=== PATIENT | female | born 1970 | race Caucasian/White ===

== ENCOUNTER 2017-12-19 22:32 | Inpatient (IN) | payer OTHER ==
[~2017-12-19] VITALS: Ht 160 cm; Wt 79.6 kg
[2017-12-19] MEDS ORDERED: ondansetron/PF 4mg/2ml inj IV ONE (22:55)
[2017-12-19] MEDS ORDERED: normal saline 1000ML IV soln IVB ONE (22:55)
[2017-12-19] MEDS ORDERED: acetaminophen 325mg tablet PO ONE (22:55)
[2017-12-19 23:02] LABS: CLARITY,URINE CLEAR (Clear); COLOR,URINE YELLOW (Yellow); GLUCOSE, URINE NEGATIVE (Neg); KETONES,URINE TRACE mg/dl (Neg); LEUKOCYTE ESTERASE ,URINE NEGATIVE (Neg); NITRITES, URINE NEGATIVE (Neg); OCCULT BLOOD,URINE TRACE-LYSED (Neg); PROTEIN,URINE TRACE mg/dl (Neg); UROBILINOGEN,URINE 0.2 E.U/dL (0.2-1.0)
[2017-12-19 23:03] LABS: UA COLLECTION TYPE CLN CATCH MIDSTREAM
[2017-12-19 23:09] LABS: BACTERIA,URINE FEW /HPF (Neg); MUCUS STRANDS MANY /LPF (Neg); SQUAMOUS EPITHELIAL CELL,UR FEW /LPF (FEW); WBC,URINE NONE SEEN /HPF (0-4)
[2017-12-19 23:32] LABS: HCG SERUM QL NEGATIVE
[2017-12-19] MEDS ORDERED: ketorolac tromethamine 15mg/ml inj. IV ONE (23:45)
[2017-12-19 23:49] LABS: BASOPHILS % (AUTO) 0 % (0-1); EOSINOPHILS # (AUTO) 0.3 X10'3 (0-0.9); EOSINOPHILS % (AUTO) 1.7 % (0-6); HEMATOCRIT 37.9 % (35.0-45.0); HEMOGLOBIN 13.5 g/dl (12.0-16.0); LYMPHOCYTES # (AUTO) 0.8 X10'3 (1.1-4.8); LYMPHOCYTES % (AUTO) 4.1 % (21-51); MEAN CORPUSCULAR HEMOGLOBIN 33.1 PG (27.0-31.0); MEAN CORPUSCULAR HGB CONC 35.6 % (33.0-36.5); MEAN CORPUSCULAR VOLUME 92.8 FL (78-98); MEAN PLATELET VOLUME 7.3 FL (7.4-10.4); MONOCYTES # (AUTO) 0.7 X10'3 (0-0.9); MONOCYTES % (AUTO) 3.5 % (2-12); NEUTROPHILS # (AUTO) 17.3 X10'3 (1.8-7.7); NEUTROPHILS % (AUTO) 90.7 % (42-75); PLATELET COUNT 219 X10'3 (140-440); RED BLOOD COUNT 4.08 X10'6 (4.20-5.60); RED CELL DISTRIBUTION WIDTH 13.1 % (11.5-14.5)
[2017-12-19] MEDS ORDERED: levoFLOXACIN-Levaquin 500mg/D5 100 ML IV ONE (23:50)
[2017-12-19] MEDS ORDERED: metroNIDAZOLE-Flagyl 500mg/NS 100 ML IV ONE (23:50)
[2017-12-20] VITALS (22 sets, daily range): BP systolic 92–124; BP diastolic 60–75
[2017-12-20 00:05] LABS: ALANINE AMINOTRANSFERASE 17 U/L (12-78); ALBUMIN 3.4 G/DL (3.4-5.0); ALBUMIN/GLOBULIN RATIO 1.1 (1.1-1.5); ALKALINE PHOSPHATASE 80 IU/L (46-116); ANION GAP 10 (8-16); ASPARTATE AMINO TRANSFERASE 13 U/L (10-37); BILIRUBIN,TOTAL 0.5 MG/DL (0.1-1.0); BLOOD UREA NITROGEN 11 MG/DL (7-18); BUN/CREATININE RATIO 13.8 (6.6-38.0); CALCIUM 8.4 MG/DL (8.5-10.1); CHLORIDE 105 MMOL/L (99-107); GLUCOSE 98 MG/DL (70-104); LIPASE 62 U/L (73-393); MAGNESIUM 1.8 MG/DL (1.5-2.4); POTASSIUM 3.6 MMOL/L (3.5-5.1); SODIUM 139 MMOL/L (135-145); TOTAL CARBON DIOXIDE 24.2 MMOL/L (24-32); TOTAL PROTEIN 6.5 G/DL (6.4-8.2); eGFR 77 ML/MIN
[2017-12-20] MEDS: HYDROmorphone 1 mg/ml syringe IV PRN ×2 (00:31→01:08)
[2017-12-20] MEDS ORDERED: naloxone 0.4 mg/ml inj IV PRN (01:00)
[2017-12-20] MEDS ORDERED: CADD PCA waste documentation MC PRN (01:00)
[2017-12-20] MEDS: HYDROmorphone/NS 1 mg/ml CADD 50 ML IV SCH ×12 (02:26→22:58)
[2017-12-20] MEDS: normal saline 1000ml 1,000 ML IV SCH ×2 (02:27→07:37)
[2017-12-20] MEDS: pantoprazole 40 MG vial IV SCH (08:03)
[2017-12-20] MEDS: lactobacillus rhamnosus 10,000 MMU CELLS/CAPSULE PO SCH ×2 (08:03→17:59)
[2017-12-20] MEDS: metroNIDAZOLE-Flagyl 500mg/NS 100 ML IV SCH ×3 (08:04→23:08)
[2017-12-20] MEDS ORDERED: BUPIVAcaine/PF 2.5 mg/ml (0.25%) 30ml vial ONE (09:49)
[2017-12-20] MEDS ORDERED: sevoflurane 250ml liquid IH ONE (10:04)
[2017-12-20] MEDS ORDERED: meperidine/PF 50mg/ml syringe IV PRN ×3 (10:05)
[2017-12-20] MEDS ORDERED: proCHLORperazine 10 MG/2 ml inj IV PRN (10:05)
[2017-12-20] MEDS ORDERED: ringers solution, lacted 1,000 ML IV SCH (10:05)
[2017-12-20] MEDS ORDERED: morphine 2 MG/ML inj. syringe IV PRN ×2 (10:05)
[2017-12-20] MEDS ORDERED: ondansetron/PF 4mg/2ml inj IV PRN (10:05)
[2017-12-20] MEDS ORDERED: fentaNYL/PF 50MCG/1 ML 2ML syringe ONE ×2 (10:07→10:31)
[2017-12-20] MEDS ORDERED: midazolam 2 mg/2 ml injection ONE (10:07)
[2017-12-20] MEDS ORDERED: propofol inj 20 ML IV ONE (10:07)
[2017-12-20] MEDS ORDERED: rocuronium 10mg/ml inj IV ONE (10:07)
[2017-12-20] MEDS ORDERED: neostigmine methylsulfate 1 MG/ML 10ml vial ONE (10:42)
[2017-12-20] MEDS ORDERED: glycopyrrolate 0.2mg/ml inj ONE (10:42)
[2017-12-20] MEDS ORDERED: NO HOME MEDS (13:24)
[2017-12-20] MEDS: acetaminophen 325mg tablet PO PRN ×2 (14:36→19:08)
[2017-12-20] MEDS: Potassium Cl inj 20 MEQ in normal saline 1000ml 1,000 ML IV SCH (19:09)
[2017-12-20] MEDS: levoFLOXACIN-Levaquin 500mg/D5 100 ML IV SCH (21:16)
[2017-12-21] VITALS: BP 104/74
[2017-12-21] MEDS: HYDROmorphone/NS 1 mg/ml CADD 50 ML IV SCH ×11 (01:00→21:00)
[2017-12-21] MEDS: acetaminophen 325mg tablet PO PRN ×4 (01:20→21:04)
[2017-12-21 04:00] VITALS: BP 106/63
[2017-12-21 05:17] LABS: BASOPHILS % (AUTO) 0.1 % (0-1); EOSINOPHILS # (AUTO) 0.2 X10'3 (0-0.9); EOSINOPHILS % (AUTO) 1.8 % (0-6); HEMATOCRIT 31.8 % (35.0-45.0); HEMOGLOBIN 11.4 g/dl (12.0-16.0); LYMPHOCYTES # (AUTO) 0.8 X10'3 (1.1-4.8); LYMPHOCYTES % (AUTO) 5.9 % (21-51); MEAN CORPUSCULAR HGB CONC 35.8 % (33.0-36.5); MEAN CORPUSCULAR VOLUME 92.3 FL (78-98); MEAN PLATELET VOLUME 7.4 FL (7.4-10.4); MONOCYTES # (AUTO) 0.8 X10'3 (0-0.9); MONOCYTES % (AUTO) 5.5 % (2-12); NEUTROPHILS # (AUTO) 11.9 X10'3 (1.8-7.7); NEUTROPHILS % (AUTO) 86.7 % (42-75); PLATELET COUNT 186 X10'3 (140-440); RED BLOOD COUNT 3.45 X10'6 (4.20-5.60); RED CELL DISTRIBUTION WIDTH 12.7 % (11.5-14.5); WHITE BLOOD COUNT 13.7 X10'3 (4.5-11.0)
[2017-12-21 05:44] LABS: ALANINE AMINOTRANSFERASE 12 U/L (12-78); ALBUMIN 2.5 G/DL (3.4-5.0); ALBUMIN/GLOBULIN RATIO 0.9 (1.1-1.5); ALKALINE PHOSPHATASE 73 IU/L (46-116); ANION GAP 7 (8-16); ASPARTATE AMINO TRANSFERASE 9 U/L (10-37); BILIRUBIN,TOTAL 0.4 MG/DL (0.1-1.0); BLOOD UREA NITROGEN 6 MG/DL (7-18); BUN/CREATININE RATIO 7.6 (6.6-38.0); CHLORIDE 108 MMOL/L (99-107); CREATININE 0.79 MG/DL (0.40-0.90); GLUCOSE 105 MG/DL (70-104); POTASSIUM 4.1 MMOL/L (3.5-5.1); SODIUM 140 MMOL/L (135-145); TOTAL CARBON DIOXIDE 24.8 MMOL/L (24-32); TOTAL PROTEIN 5.4 G/DL (6.4-8.2); eGFR 78 ML/MIN
[2017-12-21] MEDS: Potassium Cl inj 20 MEQ in normal saline 1000ml 1,000 ML IV SCH ×3 (06:47→17:17)
[2017-12-21 07:00] VITALS: BP 98/69
[2017-12-21] MEDS: pantoprazole 40 MG vial IV SCH (07:55)
[2017-12-21] MEDS: metroNIDAZOLE-Flagyl 500mg/NS 100 ML IV SCH ×3 (07:55→23:26)
[2017-12-21] MEDS: lactobacillus rhamnosus 10,000 MMU CELLS/CAPSULE PO SCH ×2 (07:56→17:16)
[2017-12-21] MEDS: ondansetron/PF 4mg/2ml inj IV PRN ×2 (15:51→21:51)
[2017-12-21] MEDS ORDERED: proCHLORperazine 10 MG/2 ml inj IV PRN (19:25)
[2017-12-21 20:00] VITALS: BP 109/68
[2017-12-21] MEDS: levoFLOXACIN-Levaquin 500mg/D5 100 ML IV SCH (20:59)
[2017-12-21] MEDS ORDERED: HYDROmorphone inj. 0.5 MG/0.5 ML DISP.SYRIN IV PRN ×2 (21:15)
[2017-12-21] MEDS: normal saline 1000ml 1,000 ML IV SCH (21:34)
[2017-12-22] VITALS: BP 142/92
[2017-12-22 05:44] LABS: BASOPHILS % (AUTO) 0 % (0-1); EOSINOPHILS # (AUTO) 0.2 X10'3 (0-0.9); EOSINOPHILS % (AUTO) 1.9 % (0-6); HEMATOCRIT 33.8 % (35.0-45.0); HEMOGLOBIN 11.9 g/dl (12.0-16.0); LYMPHOCYTES # (AUTO) 0.7 X10'3 (1.1-4.8); LYMPHOCYTES % (AUTO) 6.9 % (21-51); MEAN CORPUSCULAR HEMOGLOBIN 32.7 PG (27.0-31.0); MEAN CORPUSCULAR HGB CONC 35.1 % (33.0-36.5); MEAN PLATELET VOLUME 7.8 FL (7.4-10.4); MONOCYTES # (AUTO) 0.5 X10'3 (0-0.9); MONOCYTES % (AUTO) 4.9 % (2-12); NEUTROPHILS # (AUTO) 9.1 X10'3 (1.8-7.7); NEUTROPHILS % (AUTO) 86.3 % (42-75); PLATELET COUNT 204 X10'3 (140-440); RED BLOOD COUNT 3.63 X10'6 (4.20-5.60); RED CELL DISTRIBUTION WIDTH 12.6 % (11.5-14.5); WHITE BLOOD COUNT 10.5 X10'3 (4.5-11.0)
[2017-12-22 06:08] LABS: ALANINE AMINOTRANSFERASE 19 U/L (12-78); ALBUMIN 2.5 G/DL (3.4-5.0); ALBUMIN/GLOBULIN RATIO 0.8 (1.1-1.5); ALKALINE PHOSPHATASE 80 IU/L (46-116); ANION GAP 10 (8-16); ASPARTATE AMINO TRANSFERASE 13 U/L (10-37); BILIRUBIN,TOTAL 0.4 MG/DL (0.1-1.0); BLOOD UREA NITROGEN 7 MG/DL (7-18); BUN/CREATININE RATIO 9.9 (6.6-38.0); CALCIUM 7.9 MG/DL (8.5-10.1); CHLORIDE 107 MMOL/L (99-107); CREATININE 0.71 MG/DL (0.40-0.90); GLUCOSE 86 MG/DL (70-104); POTASSIUM 4.2 MMOL/L (3.5-5.1); SODIUM 140 MMOL/L (135-145); TOTAL CARBON DIOXIDE 23.5 MMOL/L (24-32); TOTAL PROTEIN 5.5 G/DL (6.4-8.2); eGFR 89 ML/MIN
[2017-12-22 07:00] VITALS: BP 121/73
[2017-12-22] MEDS: normal saline 1000ml 1,000 ML IV SCH (07:11)
[2017-12-22] MEDS: metroNIDAZOLE-Flagyl 500mg/NS 100 ML IV SCH (07:16)
[2017-12-22] MEDS: pantoprazole 40 MG vial IV SCH (07:16)
[2017-12-22] MEDS: ondansetron/PF 4mg/2ml inj IV PRN (07:16)
[2017-12-22] MEDS: lactobacillus rhamnosus 10,000 MMU CELLS/CAPSULE PO SCH (07:16)
[2017-12-22 11:00] VITALS: BP 127/80
[2017-12-22] MEDS ORDERED: METR500T PO (11:11)
[2017-12-22] MEDS ORDERED: ONDA4TAB9 PO (11:11)
[2017-12-22] MEDS ORDERED: HYDR-3965 PO (11:11)
[2017-12-22] MEDS ORDERED: CIPR-230 PO (11:11)
== END 2017-12-22 13:41 | disposition home or self-care (01) | DRG 340 ==
LOC: ER 22:33 → ED HOLD 12-20 00:57 → PCU 3S 12-20 01:30 → SUR 3N 12-20 12:08
PROVIDERS: ADMIT Internal Medicine; ATTEND Family Medicine
PROC: 0DTJ4ZZ Resection of Appendix, Percutaneous Endoscopic Approach (ICD-10-PCS; principal; 2017-12-20 10:04)
DX: K35.3 Acute appendicitis with localized peritonitis (principal); F32.9 Major depressive disorder, single episode, unspecified; K52.9 Noninfective gastroenteritis and colitis, unspecified; F41.9 Anxiety disorder, unspecified; R33.9 Retention of urine, unspecified; I10 Essential (primary) hypertension; Z88.1 Allergy status to other antibiotic agents
CPT/HCPCS: 96374; 96375; 99285; Z7506; 36415; 74176; 80053; 81001; 83605; 83690; 83735; 84703; 85025; 87070; A4315; A4353; A7000; C9113; J0780; J1170; J1885; J1956; J2175; J2250; J2405; J2704; J2710; J3010; J3480; J3490; J7030; J7120

== ENCOUNTER 2018-02-06 08:31 | Outpatient (CLI) | payer OTHER ==
[~2018-02-06 08:31] MED LIST: METR500T PO
[2018-02-06 09:17] LABS: BASOPHILS % (AUTO) 0.5 % (0-1); EOSINOPHILS # (AUTO) 0.4 X10'3 (0-0.9); EOSINOPHILS % (AUTO) 4.1 % (0-6); HEMATOCRIT 40.8 % (35.0-45.0); HEMOGLOBIN 14.4 g/dl (12.0-16.0); LYMPHOCYTES # (AUTO) 1.6 X10'3 (1.1-4.8); LYMPHOCYTES % (AUTO) 17.7 % (21-51); MEAN CORPUSCULAR HEMOGLOBIN 32.3 PG (27.0-31.0); MEAN CORPUSCULAR HGB CONC 35.2 % (33.0-36.5); MEAN CORPUSCULAR VOLUME 91.7 FL (78-98); MEAN PLATELET VOLUME 7.3 FL (7.4-10.4); MONOCYTES # (AUTO) 0.6 X10'3 (0-0.9); MONOCYTES % (AUTO) 6.5 % (2-12); NEUTROPHILS # (AUTO) 6.6 X10'3 (1.8-7.7); NEUTROPHILS % (AUTO) 71.2 % (42-75); PLATELET COUNT 300 X10'3 (140-440); RED BLOOD COUNT 4.46 X10'6 (4.20-5.60); RED CELL DISTRIBUTION WIDTH 13.7 % (11.5-14.5); WHITE BLOOD COUNT 9.3 X10'3 (4.5-11.0)
[2018-02-06 09:39] LABS: ALANINE AMINOTRANSFERASE 27 U/L (12-78); ALBUMIN 3.7 G/DL (3.4-5.0); ALBUMIN/GLOBULIN RATIO 1.1 (1.1-1.5); ALKALINE PHOSPHATASE 107 IU/L (46-116); ANION GAP 7 (8-16); ASPARTATE AMINO TRANSFERASE 15 U/L (10-37); BILIRUBIN,TOTAL 0.3 MG/DL (0.1-1.0); BLOOD UREA NITROGEN 16 MG/DL (7-18); BUN/CREATININE RATIO 19.5 (6.6-38.0); CALCIUM 8.9 MG/DL (8.5-10.1); CHLORIDE 105 MMOL/L (99-107); CHOL/HDL RATIO 3.5 (0.00-4.99); CHOLESTEROL 163 MG/DL (0-200); CREATININE 0.82 MG/DL (0.40-0.90); GLUCOSE 111 MG/DL (70-104); HDL CHOLESTEROL 47 MG/DL (35-60); LDL CHOLESTEROL 100 MG/DL (50-100); POTASSIUM 4.2 MMOL/L (3.5-5.1); SODIUM 140 MMOL/L (135-145); TOTAL PROTEIN 7.1 G/DL (6.4-8.2); TRIGLYCERIDES 71 MG/DL (20-135); eGFR 75 ML/MIN
== END 2018-02-06 23:59 | disposition home or self-care (01) ==
LOC: LAB 08:31
PROVIDERS: ATTEND Nurse Practitioner Family
DX: R53.83 Other fatigue (principal)
CPT/HCPCS: 36415; 80053; 80061; 84439; 84443; 85025

== ENCOUNTER 2018-09-08 18:53 | Emergency (ER) | payer OTHER ==
[~2018-09-08] VITALS: Ht 160 cm; Wt 79.0 kg
[2018-09-08 18:55] VITALS: BP 112/68
[2018-09-08] MEDS ORDERED: ketorolac trometh inj. 60 MG/2 ML VIAL IM ONE (20:15)
[2018-09-08] MEDS ORDERED: HYDR-3965 PO (20:46)
[2018-09-08] MEDS ORDERED: ONDA4TAB9 PO (20:46)
== END 2018-09-08 20:58 | disposition home or self-care (01) ==
LOC: ER 18:54
DX: S52.021A Displaced fracture of olecranon process without intraarticular extension of right ulna, initial encounter for closed fracture (principal); Z88.8 Allergy status to other drugs, medicaments and biological substances; Z79.899 Other long term (current) drug therapy; W03.XXXA Other fall on same level due to collision with another person, initial encounter; Y93.89 Activity, other specified; Y92.89 Other specified places as the place of occurrence of the external cause; Y99.8 Other external cause status
CPT/HCPCS: 29105; 73080; 96372; 99284; J1885

== ENCOUNTER 2019-01-03 13:33 | Outpatient (CLI) | payer OTHER | END 2019-01-03 23:59 | disposition home or self-care (01) | LOC: RAD 13:33 | PROVIDERS: ATTEND Family Medicine | DX: M51.37 Other intervertebral disc degeneration, lumbosacral region (principal); M48.07 Spinal stenosis, lumbosacral region; M53.3 Sacrococcygeal disorders, not elsewhere classified; Z88.1 Allergy status to other antibiotic agents | CPT/HCPCS: 72110; 72148; 72202; 73522 ==

== ENCOUNTER 2019-02-04 10:47 | Outpatient (CLI) | payer OTHER ==
[2019-02-04 12:14] LABS: BASOPHILS % (AUTO) 0.4 % (0-1); COLOR,URINE YELLOW (Yellow); EOSINOPHILS # (AUTO) 0.3 X10'3 (0-0.9); EOSINOPHILS % (AUTO) 3.4 % (0-6); GLUCOSE, URINE NEGATIVE (Neg); HEMATOCRIT 45.1 % (35.0-45.0); HEMOGLOBIN 15.6 g/dl (12.0-16.0); KETONES,URINE NEGATIVE (Neg); LEUKOCYTE ESTERASE ,URINE NEGATIVE (Neg); LYMPHOCYTES # (AUTO) 1.4 X10'3 (1.1-4.8); LYMPHOCYTES % (AUTO) 14.3 % (21-51); MEAN CORPUSCULAR HEMOGLOBIN 32.4 PG (27.0-31.0); MEAN CORPUSCULAR HGB CONC 34.7 g/dL (33.0-36.5); MEAN CORPUSCULAR VOLUME 93.4 FL (78-98); MEAN PLATELET VOLUME 7.4 FL (7.4-10.4); MONOCYTES # (AUTO) 0.7 X10'3 (0-0.9); MONOCYTES % (AUTO) 7.4 % (2-12); NEUTROPHILS # (AUTO) 7.4 X10'3 (1.8-7.7); NEUTROPHILS % (AUTO) 74.5 % (42-75); NITRITES, URINE NEGATIVE (Neg); OCCULT BLOOD,URINE NEGATIVE (Neg); PH,URINE 6.5 (4.8-8.0); PLATELET COUNT 283 X10'3 (140-440); PROTEIN,URINE NEGATIVE (Neg); RED BLOOD COUNT 4.83 X10'6 (4.20-5.60); UROBILINOGEN,URINE 0.2 E.U/dL (0.2-1.0); WHITE BLOOD COUNT 9.9 X10'3 (4.5-11.0)
[2019-02-04 12:19] LABS: CLARITY,URINE SLIGHTLY CLOUDY (Clear); UA COLLECTION TYPE CLN CATCH MIDSTREAM
[2019-02-04 12:20] LABS: BACTERIA,URINE NONE SEEN /HPF (Neg); MUCUS STRANDS MANY /LPF (Neg); RBC,URINE NONE SEEN /HPF (0-2); SQUAMOUS EPITHELIAL CELL,UR MODERATE /LPF (FEW); WBC,URINE 0-4 /HPF (0-4)
[2019-02-04 12:38] LABS: ALANINE AMINOTRANSFERASE 23 U/L (12-78); ALBUMIN 3.9 G/DL (3.4-5.0); ALBUMIN/GLOBULIN RATIO 1.2 (1.1-1.5); ALKALINE PHOSPHATASE 86 IU/L (46-116); ANION GAP 5 (8-16); ASPARTATE AMINO TRANSFERASE 16 U/L (10-37); BILIRUBIN,TOTAL 0.5 MG/DL (0.1-1.0); BLOOD UREA NITROGEN 15 MG/DL (7-18); CALCIUM 9.1 MG/DL (8.5-10.1); CHLORIDE 103 MMOL/L (99-107); CHOL/HDL RATIO 3.9 (0.00-4.99); CHOLESTEROL 188 MG/DL (0-200); CREATININE 0.75 MG/DL (0.40-0.90); GLUCOSE 93 MG/DL (70-104); HDL CHOLESTEROL 48 MG/DL (35-60); LDL CHOLESTEROL 128 MG/DL (50-100); MAGNESIUM 1.9 MG/DL (1.5-2.4); PHOSPHORUS 3.4 MG/DL (2.3-4.5); SODIUM 139 MMOL/L (135-145); TOTAL CARBON DIOXIDE 31.5 MMOL/L (24-32); TOTAL PROTEIN 7.1 G/DL (6.4-8.2); TRIGLYCERIDES 156 MG/DL (20-135); eGFR 82 ML/MIN
[2019-02-04 12:42] LABS: HEMOGLOBIN A1C 5.8 % (4.5-6.2)
== END 2019-02-04 23:59 | disposition home or self-care (01) ==
LOC: LAB 10:47
PROVIDERS: ATTEND Family Medicine
DX: Z00.00 Encounter for general adult medical examination without abnormal findings (principal); I10 Essential (primary) hypertension; R73.02 Impaired glucose tolerance (oral); M47.812 Spondylosis without myelopathy or radiculopathy, cervical region; G25.81 Restless legs syndrome; M79.672 Pain in left foot; Z91.09 Other allergy status, other than to drugs and biological substances; Z86.39 Personal history of other endocrine, nutritional and metabolic disease; Z87.891 Personal history of nicotine dependence; Z88.8 Allergy status to other drugs, medicaments and biological substances
CPT/HCPCS: 36415; 80053; 80061; 81001; 82043; 83036; 83735; 84100; 84439; 84443; 85025; 85651; 86140

== ENCOUNTER 2019-06-05 11:48 | Outpatient (CLI) | payer OTHER ==
[~2019-06-05 11:48] MED LIST changes: +LOSA100T57 PO
[2019-06-05 12:28] LABS: BASOPHILS # (AUTO) 0.1 X10'3 (0-0.2); BASOPHILS % (AUTO) 0.5 % (0-1); EOSINOPHILS # (AUTO) 0.3 X10'3 (0-0.9); EOSINOPHILS % (AUTO) 3.1 % (0-6); HEMATOCRIT 42.2 % (35.0-45.0); HEMOGLOBIN 14.5 g/dl (12.0-16.0); LYMPHOCYTES # (AUTO) 1.5 X10'3 (1.1-4.8); LYMPHOCYTES % (AUTO) 14.7 % (21-51); MEAN CORPUSCULAR HEMOGLOBIN 32.6 PG (27.0-31.0); MEAN CORPUSCULAR HGB CONC 34.4 g/dL (33.0-36.5); MEAN CORPUSCULAR VOLUME 94.9 FL (78-98); MEAN PLATELET VOLUME 7.2 FL (7.4-10.4); MONOCYTES # (AUTO) 0.8 X10'3 (0-0.9); MONOCYTES % (AUTO) 8.5 % (2-12); NEUTROPHILS # (AUTO) 7.3 X10'3 (1.8-7.7); NEUTROPHILS % (AUTO) 73.2 % (42-75); PLATELET COUNT 350 X10'3 (140-440); RED BLOOD COUNT 4.45 X10'6 (4.20-5.60); RED CELL DISTRIBUTION WIDTH 13.3 % (11.5-14.5)
== END 2019-06-05 23:59 | disposition home or self-care (01) ==
LOC: LAB 11:48
PROVIDERS: ATTEND Family Medicine
DX: K57.90 Diverticulosis of intestine, part unspecified, without perforation or abscess without bleeding (principal); K57.92 Diverticulitis of intestine, part unspecified, without perforation or abscess without bleeding; I10 Essential (primary) hypertension; Z87.891 Personal history of nicotine dependence
CPT/HCPCS: 36415; 85025; 85651; 86140

== ENCOUNTER 2020-01-21 10:37 | Outpatient (CLI) | payer OTHER ==
[~2020-01-21 10:37] MED LIST changes: -METR500T PO
[2020-01-21 11:16] LABS: BASOPHILS % (AUTO) 0.5 % (0-1); EOSINOPHILS # (AUTO) 0.2 X10'3 (0-0.9); EOSINOPHILS % (AUTO) 2.4 % (0-6); HEMATOCRIT 42.5 % (35.0-45.0); HEMOGLOBIN 14.9 g/dl (12.0-16.0); LYMPHOCYTES # (AUTO) 1.6 X10'3 (1.1-4.8); LYMPHOCYTES % (AUTO) 20.4 % (21-51); MEAN CORPUSCULAR HEMOGLOBIN 32.6 PG (27.0-31.0); MEAN CORPUSCULAR HGB CONC 35.1 g/dL (33.0-36.5); MEAN CORPUSCULAR VOLUME 92.8 FL (78-98); MEAN PLATELET VOLUME 7.3 FL (7.4-10.4); MONOCYTES # (AUTO) 0.6 X10'3 (0-0.9); NEUTROPHILS # (AUTO) 5.4 X10'3 (1.8-7.7); NEUTROPHILS % (AUTO) 68.7 % (42-75); PLATELET COUNT 298 X10'3 (140-440); RED BLOOD COUNT 4.58 X10'6 (4.20-5.60); RED CELL DISTRIBUTION WIDTH 12.9 % (11.5-14.5); WHITE BLOOD COUNT 7.8 X10'3 (4.5-11.0)
== END 2020-01-21 23:59 | disposition home or self-care (01) ==
LOC: RAD 10:37
PROVIDERS: ATTEND Family Medicine
DX: N20.0 Calculus of kidney (principal); K57.92 Diverticulitis of intestine, part unspecified, without perforation or abscess without bleeding; K57.90 Diverticulosis of intestine, part unspecified, without perforation or abscess without bleeding
CPT/HCPCS: 36415; 82306; 82330; 85025; 85651; 86140

== ENCOUNTER 2020-01-25 02:00 | Emergency (ER) | payer OTHER ==
[~2020-01-25] VITALS: Ht 157.5 cm; Wt 75.0 kg
[2020-01-25 02:27] LABS: BASOPHILS % (AUTO) 0.4 % (0-1); EOSINOPHILS # (AUTO) 0.3 X10'3 (0-0.9); EOSINOPHILS % (AUTO) 3.2 % (0-6); HEMATOCRIT 41.6 % (35.0-45.0); HEMOGLOBIN 14.4 g/dl (12.0-16.0); LYMPHOCYTES # (AUTO) 2.3 X10'3 (1.1-4.8); LYMPHOCYTES % (AUTO) 22.9 % (21-51); MEAN CORPUSCULAR HEMOGLOBIN 32.4 PG (27.0-31.0); MEAN CORPUSCULAR HGB CONC 34.6 g/dL (33.0-36.5); MEAN CORPUSCULAR VOLUME 93.4 FL (78-98); MEAN PLATELET VOLUME 7.2 FL (7.4-10.4); MONOCYTES # (AUTO) 0.8 X10'3 (0-0.9); MONOCYTES % (AUTO) 7.6 % (2-12); NEUTROPHILS # (AUTO) 6.7 X10'3 (1.8-7.7); NEUTROPHILS % (AUTO) 65.9 % (42-75); PLATELET COUNT 348 X10'3 (140-440); RED BLOOD COUNT 4.45 X10'6 (4.20-5.60); RED CELL DISTRIBUTION WIDTH 13.3 % (11.5-14.5); WHITE BLOOD COUNT 10.1 X10'3 (4.5-11.0)
[2020-01-25 02:36] LABS: ALANINE AMINOTRANSFERASE 23 U/L (12-78); ALBUMIN/GLOBULIN RATIO 1.3 (1.1-1.5); ALKALINE PHOSPHATASE 94 IU/L (46-116); ANION GAP 6 (8-16); ASPARTATE AMINO TRANSFERASE 15 U/L (10-37); BILIRUBIN,TOTAL 0.2 MG/DL (0.1-1.0); BLOOD UREA NITROGEN 10 MG/DL (7-18); BUN/CREATININE RATIO 13.5 (6.6-38.0); CALCIUM 8.8 MG/DL (8.5-10.1); CHLORIDE 106 MMOL/L (99-107); CREATININE 0.74 MG/DL (0.40-0.90); GLUCOSE 90 MG/DL (70-104); LIPASE 142 U/L (73-393); POTASSIUM 3.6 MMOL/L (3.5-5.1); SODIUM 141 MMOL/L (135-145); TOTAL CARBON DIOXIDE 29.1 MMOL/L (24-32); eGFR 83 ML/MIN
[2020-01-25 03:03] LABS: CLARITY,URINE CLEAR (Clear); COLOR,URINE YELLOW (Yellow); GLUCOSE, URINE NEGATIVE (Neg); KETONES,URINE NEGATIVE (Neg); LEUKOCYTE ESTERASE ,URINE NEGATIVE (Neg); NITRITES, URINE NEGATIVE (Neg); OCCULT BLOOD,URINE NEGATIVE (Neg); PROTEIN,URINE NEGATIVE (Neg); UROBILINOGEN,URINE 0.2 E.U/dL (0.2-1.0)
[2020-01-25 03:08] LABS: UA COLLECTION TYPE CLN CATCH MIDSTREAM
[2020-01-25 03:30] LABS: URINE HCG NEGATIVE (NEG)
[2020-01-25 03:47] VITALS: BP 118/68
== END 2020-01-25 03:48 | disposition home or self-care (01) ==
LOC: ER 02:01
DX: R10.32 Left lower quadrant pain (principal); K92.1 Melena; I10 Essential (primary) hypertension; Z90.49 Acquired absence of other specified parts of digestive tract; Z98.890 Other specified postprocedural states; Z88.1 Allergy status to other antibiotic agents; Z79.899 Other long term (current) drug therapy
CPT/HCPCS: 36415; 74176; 80053; 81003; 81025; 83690; 85025; 99284

== ENCOUNTER 2020-02-28 04:09 | Emergency (ER) | payer OTHER ==
[~2020-02-28] VITALS: Ht 157.5 cm; Wt 76.4 kg
[2020-02-28 04:14] VITALS: BP 143/98
[2020-02-28] MEDS ORDERED: CLIN150C8 PO (04:43)
[2020-02-28] MEDS ORDERED: LIDOcaine 1% W/epiNEPHrine 1:100,000 20ml vial ONE (08:00)
== END 2020-02-28 04:49 | disposition home or self-care (01) ==
LOC: ER 04:09 → EEVIPCON 04:09 → ER 04:49
DX: L02.31 Cutaneous abscess of buttock (principal); I10 Essential (primary) hypertension; Z90.49 Acquired absence of other specified parts of digestive tract; Z98.890 Other specified postprocedural states; Z88.8 Allergy status to other drugs, medicaments and biological substances; Z79.899 Other long term (current) drug therapy
CPT/HCPCS: 10060; 99283

== ENCOUNTER 2020-04-23 18:16 | Emergency (ER) | payer OTHER ==
[~2020-04-23] VITALS: Ht 160 cm; Wt 76.4 kg
[~2020-04-23 18:16] MED LIST changes: +CLIN150C8 PO
[2020-04-23 18:19] VITALS: BP_DIAS 114
[2020-04-23] MEDS ORDERED: ketorolac tromethamine 15mg/ml inj. IM ONE (18:25)
[2020-04-23] MEDS ORDERED: metoprolol tartrate 50mg tablet PO ONE (18:40)
[2020-04-23] MEDS ORDERED: metoprolol tartrate 25mg tablet PO ONE (18:40)
[2020-04-23 18:42] VITALS: BP_SYST 148
[2020-04-23] MEDS ORDERED: orphenadrine citrate 60mg/2ml inj. IM ONE (19:10)
[2020-04-23] MEDS ORDERED: METH-360 PO (19:11)
[2020-04-23] MEDS ORDERED: NAPR-56 PO (19:11)
== END 2020-04-23 19:32 | disposition home or self-care (01) ==
LOC: EEVIPCON 18:16 → ER 18:16
DX: S16.1XXA Strain of muscle, fascia and tendon at neck level, initial encounter (principal); M54.2 Cervicalgia; I10 Essential (primary) hypertension; Z90.89 Acquired absence of other organs; Z98.890 Other specified postprocedural states; Z88.8 Allergy status to other drugs, medicaments and biological substances; Z79.2 Long term (current) use of antibiotics; Z79.899 Other long term (current) drug therapy; V43.32XA Unspecified car occupant injured in collision with other type car in nontraffic accident, initial encounter; Y93.89 Activity, other specified; Y92.89 Other specified places as the place of occurrence of the external cause; Y99.9 Unspecified external cause status
CPT/HCPCS: 72125; 96372; 99284; J1885; J2360

== ENCOUNTER 2020-08-25 09:50 | Outpatient (CLI) | payer BC ==
[~2020-08-25 09:50] MED LIST changes: +METH-360 PO
== END 2020-08-25 23:59 | disposition home or self-care (01) ==
LOC: LAB 09:50
DX: M47.817 Spondylosis without myelopathy or radiculopathy, lumbosacral region (principal); M16.0 Bilateral primary osteoarthritis of hip; M47.818 Spondylosis without myelopathy or radiculopathy, sacral and sacrococcygeal region; M25.78 Osteophyte, vertebrae
CPT/HCPCS: 72110; 72220

== ENCOUNTER 2021-03-08 02:04 | Emergency (ER) | payer BC ==
[~2021-03-08] VITALS: Ht 152.4 cm; Wt 76.4 kg
[2021-03-08 02:06] VITALS: BP_DIAS 116
[2021-03-08] MEDS ORDERED: acetaminophen 325mg tablet PO ONE (02:10)
[2021-03-08] MEDS ORDERED: ketorolac trometh. 30mg/ml inj. IM ONE (02:10)
[2021-03-08] MEDS ORDERED: HYDR-3965 PO (02:32)
[2021-03-08] MEDS ORDERED: losartan 50mg tablet PO ONE (02:40)
[2021-03-08 02:47] VITALS: BP_SYST 155
[2021-03-08] MEDS ORDERED: losartan 50mg tablet PO SCH (08:00)
== END 2021-03-08 03:10 | disposition home or self-care (01) ==
LOC: ER 02:04 → EEVIPCON 02:04 → ER 03:10
DX: S32.2XXA Fracture of coccyx, initial encounter for closed fracture (principal); W18.39XA Other fall on same level, initial encounter; Y93.89 Activity, other specified; Y92.89 Other specified places as the place of occurrence of the external cause; Y99.8 Other external cause status
CPT/HCPCS: 72220; 96372; 99284; J1885

== ENCOUNTER → 2021-04-08 | Outpatient (CLI) | payer BC ==
[~2021-04-08] MED LIST changes: +HYDR-3965 PO
[2021-04-08 10:45] LABS: BASOPHILS # (AUTO) 0.1 X10'3 (0-0.2); BASOPHILS % (AUTO) 0.6 % (0-1); EOSINOPHILS # (AUTO) 0.1 X10'3 (0-0.9); EOSINOPHILS % (AUTO) 1.8 % (0-6); HEMATOCRIT 45.6 % (35.0-45.0); HEMOGLOBIN 15.7 g/dl (12.0-16.0); LYMPHOCYTES # (AUTO) 1.1 X10'3 (1.1-4.8); LYMPHOCYTES % (AUTO) 14.4 % (21-51); MEAN CORPUSCULAR HEMOGLOBIN 32.9 PG (27.0-31.0); MEAN CORPUSCULAR HGB CONC 34.5 g/dL (33.0-36.5); MEAN CORPUSCULAR VOLUME 95.2 FL (78-98); MEAN PLATELET VOLUME 7.3 FL (7.4-10.4); MONOCYTES # (AUTO) 0.5 X10'3 (0-0.9); MONOCYTES % (AUTO) 6.9 % (2-12); NEUTROPHILS # (AUTO) 6.1 X10'3 (1.8-7.7); NEUTROPHILS % (AUTO) 76.3 % (42-75); PLATELET COUNT 289 X10'3 (140-440); RED BLOOD COUNT 4.79 X10'6 (4.20-5.60); RED CELL DISTRIBUTION WIDTH 13.6 % (11.5-14.5); WHITE BLOOD COUNT 7.9 X10'3 (4.5-11.0)
[2021-04-08 11:13] LABS: C-REACTIVE PROTEIN 0.11 MG/DL (0.0-0.5); CHOL/HDL RATIO 3.6 (0.00-4.99); CHOLESTEROL 197 MG/DL (0-200); HDL CHOLESTEROL 54 MG/DL (35-60); LDL CHOLESTEROL 119 MG/DL (50-100); MAGNESIUM 2.2 MG/DL (1.5-2.4); PHOSPHORUS 3.6 MG/DL (2.3-4.5); TRIGLYCERIDES 132 MG/DL (20-135)
== END | disposition home or self-care (01) ==
LOC: LAB 09:32
PROVIDERS: ATTEND Family Medicine
DX: Z00.00 Encounter for general adult medical examination without abnormal findings (principal); I10 Essential (primary) hypertension; K57.90 Diverticulosis of intestine, part unspecified, without perforation or abscess without bleeding; K57.92 Diverticulitis of intestine, part unspecified, without perforation or abscess without bleeding; G25.81 Restless legs syndrome; N20.0 Calculus of kidney; M47.816 Spondylosis without myelopathy or radiculopathy, lumbar region; M51.36 Other intervertebral disc degeneration, lumbar region; M47.812 Spondylosis without myelopathy or radiculopathy, cervical region
CPT/HCPCS: 36415; 73130; 80061; 82043; 82306; 82330; 82570; 83735; 84100; 84439; 84443; 85025; 85651; 86140

== ENCOUNTER 2022-03-15 10:53 | Emergency (ER) | payer BC ==
[~2022-03-15] VITALS: Ht 157.5 cm; Wt 68.2 kg
[~2022-03-15 10:53] MED LIST changes: -HYDR-3965 PO
[2022-03-15] MEDS ORDERED: ringers solution, lactated 1000ml IV soln IV ONE (11:00)
[2022-03-15] MEDS ORDERED: ondansetron/PF 4mg/2ml inj IV ONE (11:00)
[2022-03-15] MEDS: morphine 4 MG/ML inj SYRINge IV PRN ×2 (11:15→12:55)
[2022-03-15 11:19] LABS: BASOPHILS # (AUTO) 0.1 X10'3 (0-0.2); BASOPHILS % (AUTO) 0.6 % (0-1); EOSINOPHILS # (AUTO) 0.2 X10'3 (0-0.9); HEMATOCRIT 49.2 % (35.0-45.0); HEMOGLOBIN 17.2 g/dl (12.0-16.0); LYMPHOCYTES % (AUTO) 9.2 % (21-51); MEAN CORPUSCULAR HEMOGLOBIN 32.8 PG (27.0-31.0); MEAN CORPUSCULAR HGB CONC 34.9 g/dL (33.0-36.5); MEAN CORPUSCULAR VOLUME 94.1 FL (78-98); MONOCYTES # (AUTO) 0.9 X10'3 (0-0.9); MONOCYTES % (AUTO) 8.9 % (2-12); NEUTROPHILS # (AUTO) 8.3 X10'3 (1.8-7.7); NEUTROPHILS % (AUTO) 79.3 % (42-75); PLATELET COUNT 190 X10'3 (140-440); RED BLOOD COUNT 5.22 X10'6 (4.20-5.60); RED CELL DISTRIBUTION WIDTH 12.9 % (11.5-14.5); WHITE BLOOD COUNT 10.5 X10'3 (4.5-11.0)
[2022-03-15 11:33] LABS: ALANINE AMINOTRANSFERASE 21 U/L (12-78); ALBUMIN 3.6 G/DL (3.4-5.0); ALKALINE PHOSPHATASE 75 IU/L (46-116); ANION GAP 11 (8-16); ASPARTATE AMINO TRANSFERASE 35 U/L (10-37); BILIRUBIN,TOTAL 0.6 MG/DL (0.1-1.0); BLOOD UREA NITROGEN 12 MG/DL (7-18); BUN/CREATININE RATIO 15.2 (6.6-38.0); CALCIUM 8.5 MG/DL (8.5-10.1); CHLORIDE 103 MMOL/L (99-107); CREATININE 0.79 MG/DL (0.40-0.90); GLUCOSE 109 MG/DL (70-104); LIPASE 55 U/L (73-393); POTASSIUM 3.9 MMOL/L (3.5-5.1); SODIUM 138 MMOL/L (135-145); TOTAL CARBON DIOXIDE 24.2 MMOL/L (24-32); TOTAL PROTEIN 7.1 G/DL (6.4-8.2); eGFR 77 ML/MIN
[2022-03-15 12:56] LABS: CLARITY,URINE CLEAR (Clear); COLOR,URINE YELLOW (Yellow); GLUCOSE, URINE NEGATIVE (Neg); KETONES,URINE NEGATIVE (Neg); LEUKOCYTE ESTERASE ,URINE NEGATIVE (Neg); NITRITES, URINE NEGATIVE (Neg); OCCULT BLOOD,URINE TRACE-INTACT (Neg); PROTEIN,URINE NEGATIVE (Neg); UROBILINOGEN,URINE 0.2 E.U/dL (0.2-1.0)
[2022-03-15 13:03] LABS: UA COLLECTION TYPE NON-SPECIFIED
[2022-03-15 13:04] LABS: MUCUS STRANDS MANY /LPF (Neg); SQUAMOUS EPITHELIAL CELL,UR MANY /LPF (FEW)
[2022-03-15 13:05] LABS: BACTERIA,URINE FEW /HPF (Neg); RBC,URINE 0-2 /HPF (0-2); WBC,URINE 0-4 /HPF (0-4)
[2022-03-15] MEDS ORDERED: HYDR-3972 PO (14:28)
[2022-03-15] MEDS ORDERED: ONDA8TAB13 PO (14:28)
[2022-03-15] MEDS ORDERED: ondansetron 4mg rapidly disintigrating tab PO ONE (14:30)
[2022-03-15] MEDS ORDERED: HYDROcodone/acetaminophen 10/325mg tab PO ONE (14:30)
[2022-03-15 15:15] VITALS: BP 124/78
== END 2022-03-15 15:17 | disposition home or self-care (01) ==
LOC: EEVIPCON 10:53 → ER 10:53
DX: R10.84 Generalized abdominal pain (principal); R11.2 Nausea with vomiting, unspecified; R19.7 Diarrhea, unspecified; I10 Essential (primary) hypertension; Z90.89 Acquired absence of other organs; Z98.890 Other specified postprocedural states; Z88.1 Allergy status to other antibiotic agents; Z79.2 Long term (current) use of antibiotics; Z79.899 Other long term (current) drug therapy
CPT/HCPCS: 36415; 74176; 80053; 81001; 83690; 85025; 96361; 96374; 96375; 96376; 99284; J2270; J2405; J7120

== ENCOUNTER 2022-05-17 23:04 | Emergency (ER) | payer BC ==
[~2022-05-17] VITALS: Ht 157.5 cm; Wt 67.3 kg
[~2022-05-17 23:04] MED LIST changes: +ONDA8TAB13 PO
[2022-05-18] MEDS ORDERED: ketorolac tromethamine 15mg/ml inj. IV ONE (00:50)
[2022-05-18] MEDS ORDERED: normal saline 1000ML IV soln IVB ONE (00:50)
[2022-05-18] MEDS ORDERED: diazepam inj 5 MG/ML inj. IV ONE ×2 (00:50→02:40)
[2022-05-18] MEDS ORDERED: morphine 4 MG/ML inj SYRINge IV ONE (00:50)
[2022-05-18] MEDS ORDERED: cyclobenzaprine 10mg tablet PO ONE (00:50)
[2022-05-18 03:23] VITALS: BP 125/76
[2022-05-18] MEDS ORDERED: dexamethasone sod phosphate 10mg/ml inj IV STA (04:01)
[2022-05-18] MEDS ORDERED: SUMAtriptan 25 MG tablet PO ONE (04:05)
[2022-05-18] MEDS ORDERED: CYCL-1 PO (04:16)
[2022-05-18] MEDS ORDERED: HYDR-3965 PO (04:16)
[2022-05-18] MEDS ORDERED: METH4TAB3 PO (04:16)
== END 2022-05-18 05:01 | disposition home or self-care (01) ==
LOC: ER 23:05
DX: G44.86 Cervicogenic headache (principal); I10 Essential (primary) hypertension; Z79.899 Other long term (current) drug therapy; Z88.8 Allergy status to other drugs, medicaments and biological substances
CPT/HCPCS: 70450; 93005; 96361; 96374; 96375; 99284; J1100; J1885; J2270; J3360; J7030

== ENCOUNTER 2023-01-17 11:58 | Emergency (ER) | payer BC ==
[~2023-01-17] VITALS: Ht 157.5 cm; Wt 75.0 kg
[~2023-01-17 11:58] MED LIST changes: +CYCL-1 PO; +METH4TAB3 PO
[2023-01-17] MEDS ORDERED: normal saline 1000ML IV soln IVB ONE (12:35)
[2023-01-17] MEDS ORDERED: ondansetron/PF 4mg/2ml inj IV ONE (12:35)
[2023-01-17] MEDS ORDERED: morphine 4 MG/ML inj SYRINge IV PRN (12:35)
[2023-01-17 12:36] LABS: URINE HCG NEGATIVE (NEG)
[2023-01-17 12:41] LABS: CLARITY,URINE CLEAR (Clear); COLOR,URINE YELLOW (Yellow); GLUCOSE, URINE NEGATIVE (Neg); KETONES,URINE NEGATIVE (Neg); LEUKOCYTE ESTERASE ,URINE NEGATIVE (Neg); NITRITES, URINE NEGATIVE (Neg); OCCULT BLOOD,URINE SMALL (Neg); PH,URINE 5.5 (4.8-8.0); PROTEIN,URINE NEGATIVE (Neg); UROBILINOGEN,URINE 0.2 E.U/dL (0.2-1.0)
[2023-01-17 12:42] LABS: UA COLLECTION TYPE CLN CATCH MIDSTREAM
[2023-01-17 12:48] LABS: BASOPHILS % (AUTO) 0.2 % (0-1); EOSINOPHILS # (AUTO) 0.2 X10'3 (0-0.9); EOSINOPHILS % (AUTO) 1.6 % (0-6); HEMATOCRIT 45.1 % (35.0-45.0); HEMOGLOBIN 15.1 g/dl (12.0-16.0); LYMPHOCYTES # (AUTO) 1.1 X10'3 (1.1-4.8); MEAN CORPUSCULAR HEMOGLOBIN 31.6 PG (27.0-31.0); MEAN CORPUSCULAR HGB CONC 33.4 g/dL (33.0-36.5); MEAN CORPUSCULAR VOLUME 94.4 FL (78-98); MEAN PLATELET VOLUME 7.4 FL (7.4-10.4); MONOCYTES # (AUTO) 0.9 X10'3 (0-0.9); MONOCYTES % (AUTO) 6.7 % (2-12); NEUTROPHILS # (AUTO) 11.1 X10'3 (1.8-7.7); NEUTROPHILS % (AUTO) 83.5 % (42-75); PLATELET COUNT 253 X10'3 (140-440); RED BLOOD COUNT 4.77 X10'6 (4.20-5.60); WHITE BLOOD COUNT 13.3 X10'3 (4.5-11.0)
[2023-01-17 12:50] LABS: BACTERIA,URINE FEW /HPF (Neg); MUCUS STRANDS FEW /LPF (Neg); RBC,URINE 0-2 /HPF (0-2); SQUAMOUS EPITHELIAL CELL,UR MODERATE /LPF (FEW); WBC,URINE 0-4 /HPF (0-4)
[2023-01-17 13:07] LABS: ALANINE AMINOTRANSFERASE 18 U/L (12-78); ALBUMIN 3.7 G/DL (3.4-5.0); ALBUMIN/GLOBULIN RATIO 1.2 (1.1-1.5); ALKALINE PHOSPHATASE 91 IU/L (46-116); ANION GAP 7 (8-16); ASPARTATE AMINO TRANSFERASE 13 U/L (10-37); BILIRUBIN,TOTAL 0.7 MG/DL (0.1-1.0); BLOOD UREA NITROGEN 14 MG/DL (7-18); CALCIUM 8.6 MG/DL (8.5-10.1); CHLORIDE 105 MMOL/L (99-107); CREATININE 0.61 MG/DL (0.40-0.90); GLUCOSE 108 MG/DL (70-104); LIPASE 51 U/L (73-393); SODIUM 138 MMOL/L (135-145); TOTAL CARBON DIOXIDE 26.5 MMOL/L (24-32); TOTAL PROTEIN 6.9 G/DL (6.4-8.2); eGFR > 90 ML/MIN
[2023-01-17] MEDS ORDERED: oxyCODONE/APAP 5-325mg tablet PO ONE (13:20)
[2023-01-17] MEDS ORDERED: metroNIDAZOLE 500mg tablet PO ONE (13:20)
[2023-01-17] MEDS ORDERED: ciprofloxacin 250mg tablet PO ONE (13:20)
[2023-01-17] MEDS ORDERED: CIPR-202 PO (13:23)
[2023-01-17] MEDS ORDERED: OXYC-145 PO (13:23)
[2023-01-17] MEDS ORDERED: FLUC200T38 PO (13:23)
[2023-01-17] MEDS ORDERED: ONDA4TAB12 PO (13:23)
[2023-01-17] MEDS ORDERED: METR-159 PO (13:23)
[2023-01-17 14:15] VITALS: BP 134/75
== END 2023-01-17 14:17 | disposition home or self-care (01) ==
LOC: ER 11:59
DX: K57.92 Diverticulitis of intestine, part unspecified, without perforation or abscess without bleeding (principal); I10 Essential (primary) hypertension; Z90.49 Acquired absence of other specified parts of digestive tract; Z98.890 Other specified postprocedural states; Z88.8 Allergy status to other drugs, medicaments and biological substances; Z79.899 Other long term (current) drug therapy
CPT/HCPCS: 36415; 74176; 80053; 81001; 81025; 83690; 85025; 96374; 96375; 99285; J2270; J2405; J7030

== ENCOUNTER 2023-01-25 23:26 | Emergency (ER) | payer BC ==
[~2023-01-25] VITALS: Ht 157.5 cm; Wt 74.5 kg
[~2023-01-25 23:26] MED LIST changes: +CIPR-202 PO; +METR-159 PO; +ONDA4TAB12 PO; +OXYC-145 PO
[2023-01-25 23:34] VITALS: BP 156/111
[2023-01-25] MEDS ORDERED: albuterol 2.5 MG/3 ML nebule NEB ONE (23:40)
[2023-01-25] MEDS ORDERED: methylPREDNISolone sod succ 125mg/2ml vial IV ONE (23:40)
[2023-01-26 00:12] LABS: BASOPHILS # (AUTO) 0.1 X10'3 (0-0.2); BASOPHILS % (AUTO) 0.5 % (0-1); EOSINOPHILS # (AUTO) 0.2 X10'3 (0-0.9); EOSINOPHILS % (AUTO) 1.7 % (0-6); HEMATOCRIT 43.1 % (35.0-45.0); HEMOGLOBIN 15.2 g/dl (12.0-16.0); LYMPHOCYTES # (AUTO) 1.5 X10'3 (1.1-4.8); LYMPHOCYTES % (AUTO) 11.8 % (21-51); MEAN CORPUSCULAR HGB CONC 35.3 g/dL (33.0-36.5); MEAN CORPUSCULAR VOLUME 93.5 FL (78-98); MEAN PLATELET VOLUME 6.8 FL (7.4-10.4); MONOCYTES % (AUTO) 7.8 % (2-12); NEUTROPHILS # (AUTO) 10.1 X10'3 (1.8-7.7); NEUTROPHILS % (AUTO) 78.2 % (42-75); PLATELET COUNT 329 X10'3 (140-440); RED CELL DISTRIBUTION WIDTH 13.5 % (11.5-14.5); WHITE BLOOD COUNT 12.9 X10'3 (4.5-11.0)
[2023-01-26 00:21] LABS: ALANINE AMINOTRANSFERASE 22 U/L (12-78); ALBUMIN 3.9 G/DL (3.4-5.0); ALBUMIN/GLOBULIN RATIO 1.1 (1.1-1.5); ALKALINE PHOSPHATASE 92 IU/L (46-116); ANION GAP 7 (8-16); ASPARTATE AMINO TRANSFERASE 28 U/L (10-37); BILIRUBIN,TOTAL 0.2 MG/DL (0.1-1.0); BLOOD UREA NITROGEN 10 MG/DL (7-18); BUN/CREATININE RATIO 15.2 (6.6-38.0); CALCIUM 9.1 MG/DL (8.5-10.1); CHLORIDE 105 MMOL/L (99-107); CREATININE 0.66 MG/DL (0.40-0.90); GLUCOSE 110 MG/DL (70-104); SODIUM 139 MMOL/L (135-145); TOTAL CARBON DIOXIDE 27.5 MMOL/L (24-32); TOTAL PROTEIN 7.3 G/DL (6.4-8.2); eGFR > 90 ML/MIN
[2023-01-26 00:23] LABS: POTASSIUM 4.3 MMOL/L (3.5-5.1)
[2023-01-26] MEDS ORDERED: ALBU8HFA PO (00:45)
[2023-01-26] MEDS ORDERED: GUAI118S13 PO (00:45)
[2023-01-26] MEDS ORDERED: PRED10TA PO (00:45)
[2023-01-26] MEDS ORDERED: AZIT-31 PO (00:45)
[2023-01-26] MEDS ORDERED: normal saline 1000ml 1,000 ML IV ONE (00:50)
[2023-01-26] MEDS ORDERED: benzonatate 100mg capsule PO ONE (00:50)
[2023-01-26] MEDS ORDERED: ringers solution, lacted 1,000 ML IV ONE (02:10)
== END 2023-01-26 05:57 | disposition home or self-care (01) ==
LOC: ER 23:28
DX: J45.901 Unspecified asthma with (acute) exacerbation (principal); I10 Essential (primary) hypertension; Z90.49 Acquired absence of other specified parts of digestive tract; Z88.8 Allergy status to other drugs, medicaments and biological substances; Z79.899 Other long term (current) drug therapy; Z79.1 Long term (current) use of non-steroidal anti-inflammatories (NSAID); Z79.2 Long term (current) use of antibiotics
CPT/HCPCS: 36415; 71046; 80053; 85025; 94640; 96361; 96374; 99284; J2930; J7030; J7120; 94760

== ENCOUNTER 2023-04-13 00:29 | Emergency (ER) | payer BC ==
[~2023-04-13] VITALS: Ht 157.5 cm; Wt 80.0 kg
[~2023-04-13 00:29] MED LIST changes: -CIPR-202 PO; -LOSA100T57 PO; +LOSA100T58 PO; -METR-159 PO; +PRED10TA PO
[2023-04-13 00:30] VITALS: BP 163/103
[2023-04-13] MEDS ORDERED: triamcinolone acetonide 40mg/ml inj IJ ONE (01:15)
[2023-04-13] MEDS ORDERED: BUPIVAcaine/PF 2.5 mg/ml (0.25%) 30ml vial IJ ONE (01:15)
[2023-04-13] MEDS ORDERED: BUPIVAcaine/PF 2.5mg/ml (0.25%) 10ml vial IJ ONE (01:35)
== END 2023-04-13 02:01 | disposition home or self-care (01) ==
LOC: ER 00:29
DX: M71.22 Synovial cyst of popliteal space [Baker], left knee (principal); I10 Essential (primary) hypertension; J45.909 Unspecified asthma, uncomplicated; F17.200 Nicotine dependence, unspecified, uncomplicated; Z90.49 Acquired absence of other specified parts of digestive tract; Z98.890 Other specified postprocedural states; Z88.8 Allergy status to other drugs, medicaments and biological substances; Z79.899 Other long term (current) drug therapy
CPT/HCPCS: 20552; 99284

== ENCOUNTER 2023-07-17 00:43 | Emergency (ER) | payer BC ==
[~2023-07-17 00:43] MED LIST changes: +AZIT-164 PO; +CLIN-214 PO; -CLIN150C8 PO
[2023-07-17 00:48] VITALS: BP 159/96; PULSE 80; RESP 18; O2SAT 100
[2023-07-17 01:23] VITALS: TEMP 98.6
== END 2023-07-17 01:25 | disposition home or self-care (01) ==
LOC: ER 00:44
DX: M71.22 Synovial cyst of popliteal space [Baker], left knee (principal); I10 Essential (primary) hypertension; J45.909 Unspecified asthma, uncomplicated; Z88.1 Allergy status to other antibiotic agents; Z79.2 Long term (current) use of antibiotics; Z79.899 Other long term (current) drug therapy; Z98.890 Other specified postprocedural states
CPT/HCPCS: 10160; 99284